=== PATIENT | female | born 1990 | race Caucasian/White ===

== ENCOUNTER 2018-12-04 16:41 | Emergency (ER) | payer SELFPAY ==
[~2018-12-04] VITALS: Ht 165.1 cm; Wt 54.7 kg
--- NOTE | 2018-12-04 17:21 | NUR ---
NO ANSWER FROM LOBBY
[2018-12-04 17:22] VITALS: BP 109/74
--- NOTE | 2018-12-04 18:02 | NUR ---
PT AMBULATORY TO RME FROM LOBBY WITH STEADY GAIT. NAD NOTED. RESP REGULAR AND UNLABORED. FALL PRECAUTIONS IN PLACE. SIDE RAILS UPX2. JACOBO PA AT BEDSIDE FOR EVALUATION.
--- NOTE | 2018-12-04 18:14 | NUR ---
REPORT AND CARE TO MARY WEBSTER AT THIS TIME.
== END 2018-12-04 19:06 | disposition home or self-care (01) ==
LOC: ED 19:00
DX: G56.01 Carpal tunnel syndrome, right upper limb (principal)
CPT/HCPCS: 29260; 99283

== ENCOUNTER 2020-04-23 15:43 | Emergency (ER) | payer SELFPAY ==
[~2020-04-23] VITALS: Ht 165.1 cm; Wt 50.8 kg
[2020-04-23 16:27] LABS: BASOPHILS # (AUTO) 0.06 x10^3/uL (0-0.1); BASOPHILS % (AUTO) 1 % (0-1); EOSINOPHILS % (AUTO) 3 % (1-7); LYMPHOCYTES # (AUTO) 1.41 x10^3/uL (1-3.4); LYMPHOCYTES % (AUTO) 11 % (22-44); MD NO; MEAN CORPUSCULAR HEMOGLOBIN 32.5 pg (27.0-34.8); MEAN CORPUSCULAR VOLUME 98.3 fL (80-100); MEAN PLATELET VOLUME 7.9 fL (7.4-10.4); MONOCYTES # (AUTO) 0.81 x10^3/uL (0.2-0.8); MONOCYTES % (AUTO) 6 % (2-9); NEUTROPHILS # (AUTO) 10.72 x10^3/uL (1.8-6.8); NEUTROPHILS % (AUTO) 80 % (42-75); PLATELET COUNT 320 x10^3/uL (130-400); RED BLOOD COUNT 4.47 x10^6/uL (3.82-5.3); RED CELL DISTRIBUTION WIDTH 12.4 % (9.6-15.2)
[2020-04-23] MEDS ORDERED: SODIUM CHLORIDE FLUSH 10ML SYR IVF ONE (16:30)
[2020-04-23 16:38] LABS: ALANINE AMINOTRANSFERASE 23 U/L (12-78); ALBUMIN 3.4 g/dL (3.4-5.0); ANION GAP 6 mmol/L (5-15); CALCIUM 9.5 mg/dL (8.5-10.1); CHLORIDE 105 mmol/L (98-107); CREATININE 0.85 mg/dL (0.55-1.02)
[2020-04-23 16:43] LABS: ALKALINE PHOSPHATASE 108 U/L (45-117); BILIRUBIN,TOTAL 0.4 mg/dL (0.2-1.0); TOTAL PROTEIN 7.9 g/dL (6.4-8.2)
[2020-04-23 18:44] LABS: MICROSCOPIC NOT IND
--- NOTE | 2020-04-23 18:58 | NUR ---
IV STARTED[facility] AWARE PT HAS IV AND IS NOW READY FOR CT.
--- NOTE | 2020-04-23 18:59 | NUR ---
REPORT FROM JALIL WEBSTER.
[2020-04-23] MEDS ORDERED: OMNIPAQUE 350 MG/ML, 75ML BOTTLE ONE (19:08)
[2020-04-23] MEDS ORDERED: MORPHINE SULFATE 4 MG/ML, 1ML ONE (20:14)
--- NOTE | 2020-04-23 20:15 | NUR ---
PT C/O LOWER ABD PAIN 08/02. UPDATED ERP. VSS.
--- NOTE | 2020-04-23 20:23 | NUR ---
PT TAKEN TO ULTRASOUND.
[2020-04-23] MEDS ORDERED: MORPHINE SULFATE 4 MG/ML, 1ML IVPush PRN (20:30)
--- NOTE | 2020-04-23 20:47 | NUR ---
REPORT GIVEN TO BERENICE WEBSTER.
[2020-04-23 20:50] VITALS: BP 121/72
== END 2020-04-23 21:34 | disposition home or self-care (01) ==
LOC: ED 18:24
DX: N92.4 Excessive bleeding in the premenopausal period (principal); R10.84 Generalized abdominal pain; F17.200 Nicotine dependence, unspecified, uncomplicated
CPT/HCPCS: 36415; 74177; 76830; 80053; 81003; 83690; 84703; 85025; 96374; 99285; J2270; Q9967